=== PATIENT | female | born 1985 | race Hispanic/Latino ===

== ENCOUNTER 2019-12-07 16:59 | Observation (INO) | payer MEDICAID, OTHER ==
[~2019-12-07 16:59] MED LIST: PREN1CAP31 PO
== END 2019-12-07 18:07 | disposition home or self-care (01) ==
LOC: LDH 16:59
PROVIDERS: ADMIT Obstetrics & Gynecology; ATTEND Obstetrics & Gynecology
DX: O36.8130 Decreased fetal movements, third trimester, not applicable or unspecified (principal); Z3A.38 38 weeks gestation of pregnancy
CPT/HCPCS: G0378